=== PATIENT | female | born 2000 | race American Indian/Alaskan Native ===

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

== ENCOUNTER 2021-01-15 15:18 | Emergency (ER) | payer MEDICAID ==
[2021-01-15 20:11] VITALS: BP 127/78
[2021-01-15] MEDS ORDERED: ONDANSETRON 4 MG ODT TAB PO ONE (20:51)
[2021-01-15] MEDS ORDERED: HYOSCYAMINE SUBL 0.125 MG TAB SL ONE (20:51)
--- NOTE | 2021-01-15 20:54 | Emergency Department Report ---
ED General Adult HPI - General Chief complaint: Nausea/Vomiting/Diarrhea Stated complaint: STOMACH CRAMPS NAUSEA DIARHEA Time Seen by Provider: 01/15/21 20:25 Source: patient Mode of arrival: Ambulatory Limitations: No Limitations - History of Present Illness Initial comments: 20-year-old female patient presents to the emergency department with complaints of abdominal pain and diarrhea for 4 days. Describes the pain as "crampy" and diffuse. Patient has experienced approximately 3 episodes of diarrhea in the last 24 hours. States her symptoms began after eating at a fast food restaurant. Patient was evaluated at another local emergency department yesterday. She was discharged home with prescription for antiemetics and analgesics. Patient did not fill the prescriptions. Her symptoms have persisted. Denies fever, chills, vomiting, melena, vaginal discharge, vaginal bleeding. Denies all other complaints at this time. - Related Data Previous Rx's Medication Instructions Recorded Last Taken Type Dicyclomine [Bentyl] 20 mg PO QID #20 tablet 01/16/21 Unknown Rx Fluconazole [Diflucan TAB] 150 mg PO QDAY 1 Days tablet 01/16/21 Unknown Rx Metoclopramide [Reglan] 10 mg PO TID 5 Days tab 01/16/21 Unknown Rx Sulfamethoxazole/Trimethoprim 1 each PO BID 3 Days tablet 01/16/21 Unknown Rx [Bactrim DS TAB] Allergies Allergy/AdvReac Type Severity Reaction Status Date / Time No Known Allergies Allergy Verified 01/15/21 20:11 ED Review of Systems ROS: Stated complaint: STOMACH CRAMPS NAUSEA DIARHEA Other details as noted in HPI Other: GENERAL: Negative for fever, chills, weight change, anorexia, fatigue. ENT: Negative for ear pain, difficulty hearing, sore throat, nasal congestion, epistaxis. CARDIOVASCULAR: Negative for chest pain, palpitations, lower extremity swelling. PULMONARY: Negative for cough, dyspnea, wheezing, orthopnea, cyanosis. GASTROINTESTINAL: Positive for abdominal pain, nausea, diarrhea. MUSCULOSKELETAL: Negative for joint pain, joint swelling, myalgias, back pain, neck pain. NEUROLOGICAL: Negative for headache, seizure, syncope, paresthesias, weakness. INTEGUMENTARY: Negative for erythema, rash, diaphoresis, laceration, ecchymosis. HEMATOLOGICAL: Negative for hemoptysis, hematemesis, hematochezia, hematuria. PSYCHIATRIC: Negative for hallucinations, suicidal ideation, homicidal ideation, anxiety, depression. ED Past Medical Hx - Past Medical History Previous Medical History?: Yes Additional medical history: fx knee - Surgical History Past Surgical History?: No - Social History Smoking Status: Never Smoker Substance Use Type: None - Medications Home Medications: Home Medications Medication Instructions Recorded Confirmed Last Taken Type Dicyclomine [Bentyl] 20 mg PO QID #20 tablet 01/16/21 Unknown Rx Fluconazole [Diflucan TAB] 150 mg PO QDAY 1 Days tablet 01/16/21 Unknown Rx Metoclopramide [Reglan] 10 mg PO TID 5 Days tab 01/16/21 Unknown Rx Sulfamethoxazole/Trimethoprim 1 each PO BID 3 Days tablet 01/16/21 Unknown Rx [Bactrim DS TAB] ED Physical Exam - General Limitations: No Limitations - Other Other exam information: General: Awake and alert. No acute distress. BMI > 38. Head: Atraumatic, normocephalic. Eyes: EOMI. Pupils are equal and round. Normal sclera and conjunctiva. ENT: Oral mucosa is moist. Normal pharyngeal exam. Neck: Supple. No lymphadenopathy. Pulmonary: No respiratory distress. Clear to auscultation bilaterally. Cardiac: Regular rate and rhythm. Pulses are palpable and equal bilaterally. No lower extremity cyanosis or edema. Skin: Warm and dry. No rashes. Abdomen: Soft, non-protuberant. Diffuse abdominal tenderness without guarding, rigidity, or rebound. Bowel sounds are normal. No organomegaly or masses noted. Back: Normal alignment. No CVA tenderness. Extremities: Symmetrical. Full range of motion intact. Neurological: Alert and oriented, appropriately interactive, no focal deficits. Psych: Cooperative. Appropriate mood and affect. Speech is evenly metered. Thoughts are logically construed. ED Course Vital Signs 01/15/21 20:00 Temperature 99.2 F Pulse Rate 83 Respiratory 18 Rate Blood Pressure 127/78 O2 Sat by Pulse 100 Oximetry ED Medical Decision Making - Lab Data Result diagrams: 01/15/21 21:36 01/15/21 21:36 - Radiology Data [facility] [address] [place] [address] Cat Scan Report Signed Patient: BRANDI FERMIN MR#: [id number] : 2000 Acct:[id number] Age/Sex: 20 / F ADM Date: 01/15/21 Loc: ED Attending Dr: Ordering Physician: MEGHANA NERI Date of Service: 01/15/21 Procedure(s): CT abdomen pelvis w con Accession Number(s): [id number] cc: MEGHANA NERI CT ABDOMEN AND PELVIS WITH IV CONTRAST INDICATION: Pt complains of abd pain w/ diarrhea, elevated LFT's, Pyuria. COMPARISON: None available. TECHNIQUE: Axial CT images were obtained through the abdomen and pelvis after 100 mL IV contrast. All CT scans at this location are performed using CT dose reduction for ALARA by means of automated exposure control. FINDINGS -- ABDOMEN: Lung Bases: No acute abnormality. Liver: No focal abnormality. Mildly enlarged.. Gallbladder: Normal. Bile Ducts: Normal. Pancreas: Normal. Spleen: Normal. Adrenals: Normal. Right Kidney and Proximal Ureter: Normal. Left Kidney and Proximal Ureter: Normal. Stomach and Bowel: Increased mucosal thickening of multiple small bowel loops a nd the stomach. Lymph Nodes: No significant adenopathy. Aorta: No significant abnormality. IVC: Normal. Additional Findings: None. FINDINGS -- PELVIS: Urinary Bladder and Distal Ureters: Normal. Reproductive Organs: No acute abnormality. Appendix: Normal. Bowel: No acute abnormality. Free Fluid: Tiny free pelvic fluid possibly physiologic. Lymph Nodes: No significant adenopathy. Additional Findings: None. Skeletal System: No acute abnormality. IMPRESSION: Findings most suspicious for mild gastroenteritis. Borderline hepatomegaly. Signer Name: Antonio Fournier MD Signed: 01/15/2021 11:47 PM Workstation Name: [id number] Transcribed By: Dictated By: Antonio Fournier MD Electronically Authenticated By: Antonio Fournier MD Signed Date/Time: 01/15/212346 DD/ 44 TD/TT: - Medical Decision Making Differential diagnosis including but not limited to: appendicitis, pyelonephritis, nephrolithiasis, urinary tract infection, foodborne illness, viral illness, pancreatitis, hepatobiliary disease, pelvic inflammatory disease, related complication On reevaluation, patient remains stable. Repeat abdominal exam is benign. Pain and nausea improved. She is afebrile. Vital signs are stable. Tolerating oral intake without difficulty. Labs show minimal LFT elevation. Urinalysis consistent with UTI. test is negative. CT of the abdomen/pelvis shows borderline hepatomegaly without acute process. Low clinical suspicion for pelvic inflammatory disease; patient is afebrile, specifically denies vaginal discharge, and states she is not concerned for STD exposure. No vomiting, fever, jaundice, or localized upper abdominal pain to suggest hepatobiliary infection/obstruction warranting further diagnostic work-up on an emergent basis at this time. Patient will be discharged home with medications for symptomatic relief of her GI symptoms as well as antibiotics for UTI and one-time dose of Diflucan for candiduria. Additionally, patient will be referred to gastr oenterologist for close outpatient follow-up of her liver enzymes and borderline hepatomegaly. Patient has no known history of liver disease. There is no clinical evidence to suggest fulminant hepatic failure. Discussed results of CT scan with patient who has been provided with a copy of the radiology report to take with her to her gastroenterology follow-up appointment. Patient expressed understanding and is agreeable to plan of care. Dietary modifications discussed. Strict return precautions provided. Repeat exam is unremarkable and benign. History, exam, diagnostic testing, and current condition do not suggest worrisome pathology to warrant further testing, continued ED treatment, admission, or surgical evaluation at this point. Given the low probability of a significant medical illness, it would be more likely to result in harm than benefit to perform further testing at this stage. Discussed findings, presumptive diagnosis, need for follow-up and specific signs/symptoms that should prompt immediate return to the emergency department. Instructions were explained in detail to the patient in addition to giving written discharge information. Patient expressed understanding and was given the opportunity to ask questions, all of which were satisfactorily answered prior to discharge home. Critical care attestation.: If time is entered above; I have spent that time in minutes in the direct care of this critically ill patient, excluding procedure time. ED Disposition Clinical Impression: Candiduria Nausea and vomiting Qualifiers: Vomiting type: unspecified Vomiting Intractability: non-intractable Qualified Code(s): R11.2 - Nausea with vomiting, unspecified Urinary tract infection Qualifiers: Urinary tract infection type: site unspecified Hematuria presence: with hematuria Qualified Code(s): N39.0 - Urinary tract infection, site not specified Disposition: HOME / SELF CARE / HOMELESS Is pt being admited?: No Does the pt Need Aspirin: No Condition: Stable Instructions: Nausea and Vomiting, Adult, [id number]-al-Lbtp Additional Instructions: Take Bentyl as directed for intestinal discomfort. Take Reglan as directed for nausea. Take one-time dose of Diflucan as directed Take Bactrim with food as directed as directed. Increase your dietary intake of probiotic rich foods. Rest. Drink plenty of fluids. Gradually advance diet slowly as tolerated. Follow-up with client application support engineer this week regarding lab/CT findings. Call tomorrow to schedule an appointment. See referral information below. Bring a copy of today's results with you to your follow-up appointment. Please avoid alcohol and Tylenol-containing products until otherwise instructed by client application support engineer. Return to the emergency department immediately for new or worsening symptoms. Specifically, return to the emergency department immediately for fever, vomiting, worsening abdominal pain, black/bloody stools, skin color changes, abnormal bleeding/bruising, dehydration, mental status changes, or any other concerns. Prescriptions: Sulfamethoxazole/Trimethoprim [Bactrim DS TAB] 1 each PO BID 3 Days tablet Dicyclomine [Bentyl] 20 mg PO QID #20 tablet Fluconazole [Diflucan TAB] 150 mg PO QDAY 1 Days tablet Metoclopramide [Reglan] 10 mg PO TID 5 Days tab Referrals: [facility] [Provider Group] - 3-5 Days Time of Disposition: 00:09
[2021-01-15 21:47] LABS: Bacteria,Urine 1+ /HPF (Negative); Bilirubin,Urine NEG (Negative); Blood,Urine SM (Negative); Color,Urine Yellow (Yellow); Mucus,Urine 2+ /HPF
[2021-01-15 22:03] LABS: Basophils # (Auto) 0.1 K/mm3 (0.0-0.1); Basophils % (Auto) 0.7 % (0.0-1.8); Eosinophils # (Auto) 0.1 K/mm3 (0.0-0.4); Eosinophils % (Auto) 1.3 % (0.0-4.3); Hematocrit 40.1 % (30.3-42.9); Hemoglobin 13.3 gm/dl (10.1-14.3); Mean Corpuscular HGB Conc 33 % (30-34); Mean Corpuscular Volume 91 fl (79-97); Monocytes # (Auto) 0.6 K/mm3 (0.0-0.8); Monocytes % (Auto) 7.3 % (0.0-7.3); Platelet Count 304 K/mm3 (140-440); Red Cell Distribution Width 13.3 % (13.2-15.2)
[2021-01-15 22:32] LABS: Alanine Aminotransferase 69 units/L (7-56); Blood Urea Nitrogen 13 mg/dL (7-17); Calcium 9.7 mg/dL (8.4-10.2); Hemolysis Index 5
[2021-01-15 22:33] LABS: BUN/Creatinine Ratio 22
--- NOTE | 2021-01-15 23:51 | Cat Scan Report ---
CT ABDOMEN AND PELVIS WITH IV CONTRAST INDICATION: Pt complains of abd pain w/ diarrhea, elevated LFT's, Pyuria. COMPARISON: None available. TECHNIQUE: Axial CT images were obtained through the abdomen and pelvis after 100 mL IV contrast. All CT scans a t this location are performed using CT dose reduction for ALARA by means of automated exposure contro l. FINDINGS -- ABDOMEN: Lung Bases: No acute abnormality. Liver: No focal abnormality. Mildly enlarged.. Gallbladder: Normal. Bile Ducts: Normal. Pancreas: Normal. Spleen: Normal. Adrenals: Normal. Right Kidney and Proximal Ureter: Normal. Left Kidney and Proximal Ureter: Normal. Stomach and Bowel: Increased mucosal thickening of multiple small bowel loops and the stomach. Lymph Nodes: No significant adenopathy. Aorta: No significant abnormality. IVC: Normal. Additional Findings: None. FINDINGS -- PELVIS: Urinary Bladder and Distal Ureters: Normal. Reproductive Organs: No acute abnormality. Appendix: Normal. Bowel: No acute abnormality. Free Fluid: Tiny free pelvic fluid possibly physiologic. Lymph Nodes: No significant adenopathy. Additional Findings: None. Skeletal System: No acute abnormality. IMPRESSION: Findings most suspicious for mild gastroenteritis. Borderline hepatomegaly. Signer Name: Antonio Fournier MD Signed: 01/15/2021 11:47 PM Workstation Name: [id number]
== END 2021-01-16 01:00 | disposition home or self-care (01) ==
LOC: ED 15:18
DX: B37.49 Other urogenital candidiasis (principal); R11.2 Nausea with vomiting, unspecified
CPT/HCPCS: 36415; 74177; 80053; 81001; 83690; 83735; 84703; 85025; 99284; Q9967; Q0162